=== PATIENT | female | born 1955 ===

== ENCOUNTER 2022-12-02 11:21 | Inpatient (IN) | payer OTHER ==
[~2022-12-02] VITALS: Ht 162.6 cm; Wt 81.6 kg
[2022-12-06] MEDS ORDERED: SYNTHROID200 MCG PO (11:34)
[2022-12-06] MEDS ORDERED: TRELEGY ELLIPT1 EAC1 IH (11:36)
[2022-12-08] MEDS ORDERED: ENBREL50 MG/1 M1 (10:19)
[2022-12-11] MEDS ORDERED: HYOSCYAMINE0.125 M1 SL (12:50)
[2022-12-11] MEDS ORDERED: PEPCID AC20 MG PO (12:50)
[2022-12-11] MEDS ORDERED: TRAM1TAB98 PO (12:50)
== END 2022-12-11 13:11 | disposition home or self-care (01) | DRG 331 ==
LOC: EDUNIT# 12-03 09:30 → O/R 12-08 08:43 → SURH 12-08 08:43
PROVIDERS: ADMIT Surgery; ATTEND Surgery
PROC: 07BB4ZZ Excision of Mesenteric Lymphatic, Percutaneous Endoscopic Approach (ICD-10-PCS; 2022-12-08)
PROC: 0DTF4ZZ Resection of Right Large Intestine, Percutaneous Endoscopic Approach (ICD-10-PCS; principal; 2022-12-08 12:30)
DX: D12.2 Benign neoplasm of ascending colon (principal); E03.8 Other specified hypothyroidism

== ENCOUNTER 2022-12-02 12:11 | Outpatient (CLI) | payer OTHER | END 2022-12-02 12:20 | disposition home or self-care (01) | LOC: RAD 12:11 | PROVIDERS: ATTEND Surgery | DX: D12.2 Benign neoplasm of ascending colon (principal) ==